=== PATIENT | male | born 1960 | race Caucasian/White ===

== ENCOUNTER → 2020-05-14 | Outpatient (CLI) | payer BC | LOC: LAB FS 10:26 | PROVIDERS: ATTEND Orthopaedic Surgery | DX: Z01.812 Encounter for preprocedural laboratory examination (principal); Z20.828 Contact with and (suspected) exposure to other viral communicable diseases | CPT/HCPCS: 87635 ==

== ENCOUNTER → 2022-10-27 | Outpatient (CLI) | payer BC ==
[~2022-10-27] VITALS: Ht 188 cm; Wt 96.3 kg
[~2022-10-27] MED LIST: OMEP20CA18 PO
== END | disposition home or self-care (01) ==
LOC: PREOP 09:22
PROVIDERS: ATTEND Surgery
DX: Z01.818 Encounter for other preprocedural examination (principal)

== ENCOUNTER 2022-10-28 13:38 | Day surgery (SDC) | payer BC ==
[~2022-10-28] VITALS: Ht 182 cm; Wt 96.0 kg
--- NOTE | 2022-10-28 13:43 | Progress Note-Pre Operative ---
Pre-Operative Progress Note Date of Available H&P: Oct 28, 2022 Date H&P Reviewed: Oct 28, 2022 Time H&P Reviewed: 13:40 History & Physical: No changes noted Pre-Operative Diagnosis: screening, hx of polyp JUAN F MCKINNEY MD Oct 28, 2022 13:43
[2022-10-28] MEDS ORDERED: ONDANSETRON 4 MG/2 ML (SDV) Z0FRAN IVP PRN (13:45)
[2022-10-28] MEDS ORDERED: ONDANSETRON 4 MG (ZOFRAN) ORAL DISSOLVE TAB PO PRN (13:45)
--- NOTE | 2022-10-28 13:45 | Discharge Inst-Surgical ---
D/C Lap Instructions-FAYE Follow Up Activity as tolerated High Fiber Diet 25g or more per day Avoid Alcohol, Caffeine, Spicy [place] and Acid foods. Drink 64 fluid oz or more of fluids per day. Symptoms to Report: Fever over 101 degree F, Nausea/Vomiting If any problems/questions: Contact your physician or go to Emergency Room JUAN F MCKINNEY MD Oct 28, 2022 13:45
[2022-10-28] MEDS ORDERED: LACTATED RINGERS 1,000 ML IV STA (13:51)
[2022-10-28] MEDS ORDERED: LIDOCAINE JELLY 2% 6 ML SYRINGE MM PRN (14:00)
[2022-10-28 14:09] VITALS: BP 109/74
[2022-10-28] MEDS ORDERED: LIDOCAINE JELLY 2% 6 ML SYRINGE ONE (14:47)
[2022-10-28] MEDS ORDERED: LACTATED RINGERS 1,000 ML IV ONE (15:46)
--- NOTE | 2022-10-28 16:05 | Progress Note-Post Operative ---
Post-Operative Progess Note Surgeon (s)/Short Order Fry Cook (s) Surgeon JUAN F MCKINNEY MD Short Order Fry Cook: none Pre-Operative Diagnosis screening, hx of polyp Post-Operative Diagnosis mild chronic stage 2 ext and int hemorrhoids. Procedure & Operative Findings Date of Procedure 10/28/22 Procedure Performed/Findings colonoscopy Anesthesia Type mac Estimated Blood Loss Estimated blood loss (mL): minimal Specimens/Packing Specimens Removed none JUAN F MCKINNEY MD Oct 28, 2022 16:05
[2022-10-28] MEDS ORDERED: PROPOFOL INJECTION 50 ML IV ONE (16:20)
[2022-10-28 16:23] VITALS: BP 120/71
--- NOTE | 2022-10-28 16:23 | Anesthesia-General Post-Op ---
MAC Patient Condition Mental Status/LOC: Same as Preop Cardiovascular: Satisfactory Nausea/Vomiting: Absent Respiratory: Satisfactory Pain: Controlled Complications: Absent Post Op Complications Complications None Follow Up Care/Instructions Patient Instructions None needed. Anesthesiology Discharge Order Discharge Order Patient is doing well, no complaints, stable vital signs, no apparent adverse anesthesia problems. No complications reported per nursing. LAYNE HERNANDEZ CRNA Oct 28, 2022 16:23
[2022-10-28 16:28] VITALS: BP 111/68
[2022-10-28 16:30] VITALS: BP 111/68
[2022-10-28 17:00] VITALS: BP 109/68
[2022-10-28 17:10] VITALS: BP 109/68
--- NOTE | 2022-10-29 00:59 | OPERATIVE REPORT ---
DATE OF SERVICE: 10/28/2022 ATTENDING PRIMARY CARE PHYSICIAN: Dr. Gallo De La Rosa. PREOPERATIVE DIAGNOSIS: Screening colonoscopy with history of colon polyps. POSTOPERATIVE DIAGNOSIS: Mild chronic stage II, external and internal hemorrhoids. PROCEDURE: Colonoscopy. SURGEON: Juan F Mckinney MD ANESTHESIA: Monitored anesthesia care. ESTIMATED BLOOD LOSS: Minimal. FINDINGS: Mild chronic stage II, external and internal hemorrhoids. DISPOSITION: The patient tolerated the procedure well. INDICATIONS: The patient is a 62-year-old male referred over to us for screening colonoscopy. His last colonoscopy was approximately 5 years ago and he believes that he did have a few polyps, which were biopsied and found to be benign. He states that he is otherwise doing well, does not report any major issues with diarrhea, nor constipation as well as no red blood per rectum, nor any dark tarry stools. He also does not report any family history of colon cancer. DESCRIPTION OF PROCEDURE: The patient was brought to the endoscopy suite and laid in the left lateral decubitus position. After adequate IV pain and sedative medications and monitored anesthesia care, a digital rectal examination was performed, mild chronic stage II external and internal hemorrhoids were identified, which were not actively edematous nor inflamed and no bleeding. Normal sphincter tone was felt and there were no palpable masses. Prostate gland was palpable and appeared normal. The endoscope was then intubated into the anus, rectum gently insufflated. The endoscope was then advanced through the valves of Carpenter of the rectum with no polyps or any neoplasms identified. We then proceeded to the sigmoid colon where no diverticulosis identified. The endoscope was then advanced to the remainder of the descending, transverse and ascending colon to the cecum, which were normal. There were no polyps or any neoplasms identified throughout the colon or rectum. The endoscope was slowly withdrawn while taking a second look and suctioning of residual air with no additional findings. The patient tolerated the procedure well. We will recommend continued medical management with a high-fiber diet with addition of a fiber supplement, which should equal or exceed 30 grams daily as well as significant amounts of water to promote soft consistency stools on a daily basis. If he is asymptomatic, he does not need another colonoscopy for another 10 years. Job ID: [id number] DocumentID: [id number] Dictated Date: 10/28/2022 16:24:11 Turnaround Planner Date: 10/29/2022 00:56:00 Dictated By: JUAN F MCKINNEY MD
== END 2022-10-28 17:10 | disposition home or self-care (01) ==
LOC: ENDO 13:38
PROVIDERS: ATTEND Surgery
DX: Z12.11 Encounter for screening for malignant neoplasm of colon (principal); K64.1 Second degree hemorrhoids; K64.4 Residual hemorrhoidal skin tags; Z86.010 Personal history of colon polyps; F17.220 Nicotine dependence, chewing tobacco, uncomplicated